=== PATIENT | male | born 1945 | race Caucasian/White ===

== ENCOUNTER 2021-12-11 12:48 | Day surgery (SDC) | payer OTHER, BC ==
[2021-12-11] MEDS ORDERED: Boostrix 0.5 ML (Tdap) VIAL ONE (13:08)
[2021-12-11 13:12] LABS: #Eosinphils 0.1 thou/uL (0.0-0.7); #Lymphocytes 0.5 thou/uL (1.20-3.40); #Monocytes 0.4 thou/uL (0.11-0.59); #Neutrophils 6.2 thou/uL (1.40-6.50); %Eosinophils 1.3 % (0.0-10.0); %Lymphocytes 7.2 % (21.0-51.0); %Monocytes 6.1 % (0.0-10.0); %Neutrophils 85.4 % (42.0-75.0); Hemoglobin 13.2 g/dL (14.0-18.0); Mean Corpuscular HGB CONC 31.8 g/dL (32.0-36.0); Mean Corpuscular Hemoglobin 31.6 pg (27.0-31.0); Mean Corpuscular Volume 99.3 fL (78.0-98.0); Mean Platelet Volume 7.4 fL (7.4-10.4); Platelet Count 184 thou/uL (130-400); RBC Distribution Width 13.7 % (11.5-14.5); Red Blood Cell (RBC) Count 4.17 mill/uL (4.70-6.10); White Blood Cell (WBC) Count 7.2 thou/uL (4.8-10.8)
[2021-12-11] MEDS ORDERED: CEFAZOLIN 1 GM VIAL ONE (13:21)
[2021-12-11 13:44] LABS: ALT (SGPT) 17 U/L (8-55); AST (SGOT) 18 U/L (5-34); Albumin 4.2 g/dL (3.4-4.8); Alkaline Phosphatase 63 U/L (40-110); Anion Gap 15 mmol/L (10-20); BUN (Urea Nitrogen) 26 mg/dL (8.4-25.7); Bilirubin, Total 0.7 mg/dL (0.2-1.2); Calc. Creatinine Clearance 0 mL/min (70-130); Calcium 9.8 mg/dL (7.8-10.44); Carbon Dioxide 18 mmol/L (23-31); Chloride 109 mmol/L (98-107); Globulin 2.9 g/dL (2.4-3.5); Glucose 144 mg/dL (83-110); Potassium 4.3 mmol/L (3.5-5.1); Protein, Total 7.1 g/dL (5.8-8.1); Sodium 138 mmol/L (136-145)
[2021-12-11] MEDS ORDERED: Morphine 4 MG/ML VIAL ONE (14:39)
[2021-12-11] MEDS ORDERED: Ondansetron PF 4 MG/2 ML Vial ONE ×2 (14:40→16:34)
[2021-12-11 15:01] LABS: SARS-CoV-2 NAA Rapid Test Not Detected (NotDetected)
[2021-12-11] MEDS ORDERED: Lidocaine 1% PF 5 ML VIAL ONE (16:34)
[2021-12-11] MEDS ORDERED: ePHEDrine 50 MG/ML VIAL ONE (16:34)
[2021-12-11] MEDS ORDERED: PROPOFOL 200 MG/20 ML VIAL ONE (16:34)
[2021-12-11] MEDS ORDERED: Metoclopramide HCl 10 MG/2 ML VIAL ONE (16:34)
[2021-12-11] MEDS ORDERED: ceFAZolin 2 GM/Dextrose 50 ML IVPB ONE (16:36)
[2021-12-11] MEDS ORDERED: Bupivacaine PF 0.5% 30 ML VIAL ONE (16:53)
[2021-12-11] MEDS ORDERED: HYDROcodone/Acetaminophen 5/325 mg Tablet ONE (18:43)
== END 2021-12-11 19:58 | disposition home or self-care (01) ==
LOC: ERS 12:48 → SDC 15:39
PROVIDERS: ATTEND Orthopaedic Surgery
PROC: 0JQH0ZZ Repair Left Lower Arm Subcutaneous Tissue and Fascia, Open Approach (ICD-10-PCS; principal; 2021-12-11)
PROC: 2W3DX1Z Immobilization of Left Lower Arm using Splint (ICD-10-PCS; principal; 2021-12-11)
DX: S52.302A Unspecified fracture of shaft of left radius, initial encounter for closed fracture (principal); S56.922A Laceration of unspecified muscles, fascia and tendons at forearm level, left arm, initial encounter; I25.10 Atherosclerotic heart disease of native coronary artery without angina pectoris; I12.9 Hypertensive chronic kidney disease with stage 1 through stage 4 chronic kidney disease, or unspecified chronic kidney disease; N18.9 Chronic kidney disease, unspecified; N28.1 Cyst of kidney, acquired; K57.30 Diverticulosis of large intestine without perforation or abscess without bleeding; Z94.0 Kidney transplant status; Z95.1 Presence of aortocoronary bypass graft; Z20.822 Contact with and (suspected) exposure to COVID-19; V49.49XA Driver injured in collision with other motor vehicles in traffic accident, initial encounter
CPT/HCPCS: 36415; 70450; 71260; 72125; 74177; 80053; 85025; 86850; 86900; 86901; 90715; G0390; J0690; J2270; J2405; J2704; J2765; J3490; S0020; U0002

== ENCOUNTER 2022-08-09 15:00 | Inpatient (IN) | payer BC, MEDICARE ==
[2022-08-14] MEDS ORDERED: Thrombin 5000 UNITS/5 ML VIAL ONE (06:25)
[2022-08-14] MEDS ORDERED: fentaNYL PF 100 MCG/2 ML SYRINGE ONE ×2 (06:44→08:02)
[2022-08-14 06:54] LABS: SARS-CoV-2 NAA Rapid Test Not Detected (NotDetected)
[2022-08-14] MEDS ORDERED: Sodium Chloride 0.9% 100 ML ONE (07:00)
[2022-08-14] MEDS ORDERED: CEFAZOLIN 2 GM VIAL ONE (07:00)
[2022-08-14] MEDS ORDERED: Ondansetron PF 4 MG/2 ML Vial ONE (07:29)
[2022-08-14] MEDS ORDERED: Glycopyrrolate 0.2 MG/ML 5 ML SYRINGE ONE (07:29)
[2022-08-14] MEDS ORDERED: PROPOFOL 200 MG/20 ML VIAL ONE (07:29)
[2022-08-14] MEDS ORDERED: ePHEDrine 50 MG/ML VIAL ONE (07:29)
[2022-08-14] MEDS ORDERED: NEOSTIGMINE 3 MG/3 ML SYR 3 MG/3 ML SYRINGE ONE (07:29)
[2022-08-14] MEDS ORDERED: Rocuronium Bromide 10 MG/ML (10ML VIAL) ONE (07:29)
[2022-08-14] MEDS ORDERED: PHENYLEPHRINE-NS 100 MCG/ML 10 ML SYRINGE ONE (07:29)
[2022-08-14] MEDS ORDERED: Morphine 4 MG/ML VIAL SLOW IVP PRN (07:45)
[2022-08-14] MEDS ORDERED: diphenhydrAMINE 25 MG CAP PO PRN (07:45)
[2022-08-14] MEDS ORDERED: traMADol HCl 50 MG TAB PO PRN (07:45)
[2022-08-14] MEDS ORDERED: Ondansetron PF 4 MG/2 ML Vial IVP PRN (07:45)
[2022-08-14] MEDS ORDERED: Acetaminophen 325 MG TAB PO PRN (07:45)
[2022-08-14] MEDS ORDERED: HYDROcodone/Acetaminophen 7.5/325 mg Tablet PO PRN (07:45)
[2022-08-14] MEDS ORDERED: Cepastat Lozenges 1 LOZ PO PRN (07:47)
[2022-08-14] MEDS ORDERED: cloNIDine 0.1 MG TAB PO PRN (07:48)
[2022-08-14] MEDS ORDERED: FENTANYL 50 MCG/ML 1 ML VIAL ONE (09:56)
[2022-08-14] MEDS ORDERED: Promethazine HCl 25 MG/ML VIAL IM PRN (10:12)
[2022-08-14] MEDS ORDERED: Ondansetron HCl/PF 4 MG/2 ML Vial IVP PRN (10:12)
[2022-08-14] MEDS ORDERED: Promethazine HCl 25 MG/ML VIAL IVPB PRN (10:12)
[2022-08-14] MEDS: Atorvastatin Calcium 40 MG TAB PO SCH (11:01)
[2022-08-14] MEDS: predniSONE 5 MG TAB PO SCH (11:01)
[2022-08-14] MEDS: Sodium Chloride 0.9% 1,000 ML IV SCH (11:01)
[2022-08-14] MEDS: Carvedilol 25 MG TAB PO SCH ×2 (11:01→21:50)
[2022-08-14] MEDS: Sodium Bicarbonate Tab 325 MG TAB PO SCH ×3 (11:01→21:45)
[2022-08-14] MEDS: NIFEdipine XL 60 MG TAB PO SCH ×2 (11:02→21:51)
[2022-08-14] MEDS: Acetaminophen/Codeine 30-300mg Tablet PO PRN (11:06)
[2022-08-14] MEDS: tiZANidine HCl 4 MG TAB PO PRN ×2 (14:11→21:45)
[2022-08-14] MEDS ORDERED: Magnesium Oxide 400 MG TAB PO SCH (14:30)
[2022-08-14] MEDS: Chloraseptic Spray 180 ml Bottle PO PRN (14:47)
[2022-08-14] MEDS: CEFAZOLIN 2 GM in Sodium Chloride 0.9% 100 ML IVPB SCH ×2 (14:47→23:56)
[2022-08-14] MEDS: K-Phos Neutral 250 MG TAB PO SCH (17:05)
[2022-08-14] MEDS: Tacrolimus 1 MG CAP PO SCH (21:45)
[2022-08-14] MEDS: Magnesium Oxide 400 MG TAB PO SCH (21:48)
[2022-08-14] MEDS: Mycophenolate 250 MG CAP PO SCH (21:48)
[2022-08-15] MEDS: Sodium Chloride 0.9% 1,000 ML IV SCH ×2 (00:20→11:39)
[2022-08-15 02:55] VITALS: BMI 35.9
[2022-08-15] MEDS: Levothyroxine Sodium 50 MCG TAB PO SCH (06:09)
[2022-08-15] MEDS: CEFAZOLIN 2 GM in Sodium Chloride 0.9% 100 ML IVPB SCH ×2 (08:09→15:26)
[2022-08-15] MEDS: K-Phos Neutral 250 MG TAB PO SCH ×2 (08:10→16:53)
[2022-08-15] MEDS: Sodium Bicarbonate Tab 325 MG TAB PO SCH ×3 (08:10→20:26)
[2022-08-15] MEDS: Carvedilol 25 MG TAB PO SCH ×2 (08:11→20:24)
[2022-08-15] MEDS: predniSONE 5 MG TAB PO SCH (08:11)
[2022-08-15] MEDS: Tacrolimus 1 MG CAP PO SCH ×2 (08:11→20:25)
[2022-08-15] MEDS: Mycophenolate 250 MG CAP PO SCH ×2 (08:11→20:24)
[2022-08-15] MEDS: Atorvastatin Calcium 40 MG TAB PO SCH (08:11)
[2022-08-15] MEDS: Magnesium Oxide 400 MG TAB PO SCH ×2 (08:11→20:25)
[2022-08-15] MEDS: NIFEdipine XL 60 MG TAB PO SCH ×2 (11:46→20:25)
[2022-08-15] MEDS: Acetaminophen/Codeine 30-300mg Tablet PO PRN (20:33)
[2022-08-16] MEDS: CEFAZOLIN 2 GM in Sodium Chloride 0.9% 100 ML IVPB SCH ×2 (00:09→08:35)
[2022-08-16] MEDS: Sodium Chloride 0.9% 1,000 ML IV SCH (00:34)
[2022-08-16] MEDS: Levothyroxine Sodium 50 MCG TAB PO SCH (05:27)
[2022-08-16] MEDS: Acetaminophen/Codeine 30-300mg Tablet PO PRN (05:33)
[2022-08-16] MEDS: Chloraseptic Spray 180 ml Bottle PO PRN (05:35)
[2022-08-16 08:40] VITALS: BP 152/74; TEMP 98.1
[2022-08-16] MEDS: Mycophenolate 250 MG CAP PO SCH (08:49)
[2022-08-16] MEDS: Magnesium Oxide 400 MG TAB PO SCH (08:50)
[2022-08-16] MEDS: Atorvastatin Calcium 40 MG TAB PO SCH (08:50)
[2022-08-16] MEDS: predniSONE 5 MG TAB PO SCH (08:50)
[2022-08-16] MEDS: Tacrolimus 1 MG CAP PO SCH (08:51)
[2022-08-16] MEDS: Sodium Bicarbonate Tab 325 MG TAB PO SCH (08:51)
[2022-08-16] MEDS: K-Phos Neutral 250 MG TAB PO SCH (08:51)
[2022-08-16] MEDS: Carvedilol 25 MG TAB PO SCH (08:52)
[2022-08-20] MEDS ORDERED: Ergocalciferol 1.25 MG(50,000 UNITS) CAP PO SCH (09:00)
== END 2022-08-16 10:35 | disposition home or self-care (01) | DRG 472 ==
LOC: SURG A 08-14 05:56 → MSONC 08-14 10:48
PROVIDERS: ADMIT Surgery; ATTEND Surgery
PROC: 0RG20A0 Fusion of 2 or more Cervical Vertebral Joints with Interbody Fusion Device, Anterior Approach, Anterior Column, Open Approach (ICD-10-PCS; principal; 2022-08-14)
PROC: 0RB30ZZ Excision of Cervical Vertebral Disc, Open Approach (ICD-10-PCS; 2022-08-14)
PROC: 01N10ZZ Release Cervical Nerve, Open Approach (ICD-10-PCS; 2022-08-14)
DX: M48.02 Spinal stenosis, cervical region (principal); Z94.0 Kidney transplant status; D84.9 Immunodeficiency, unspecified; M54.12 Radiculopathy, cervical region; Z20.822 Contact with and (suspected) exposure to COVID-19; Z96.611 Presence of right artificial shoulder joint; Z96.651 Presence of right artificial knee joint; E66.9 Obesity, unspecified; Z79.899 Other long term (current) drug therapy; Z79.82 Long term (current) use of aspirin; Z79.52 Long term (current) use of systemic steroids; Z95.1 Presence of aortocoronary bypass graft; Z88.6 Allergy status to analgesic agent; Z68.35 Body mass index [BMI] 35.0-35.9, adult
CPT/HCPCS: C1713; J2405; J2704; J3010; J3490; J7050; J7507; J7512; J7517; J8499; U0002